=== PATIENT | female | born 1950 | race Caucasian/White ===

== ENCOUNTER 2018-06-16 06:23 | Inpatient (IN) | payer OTHER ==
[~2018-06-16] VITALS: Ht 165.1 cm; Wt 126.1 kg
[2018-06-16 06:24] VITALS: BP 115/60
[2018-06-16] MEDS ORDERED: ASPIR 8181 MG PO (07:20)
[2018-06-16] MEDS ORDERED: TYLENOL EXTRA500 MG PO (07:20)
[2018-06-16] MEDS ORDERED: ATORVASTATIN CA40 MG PO (07:21)
[2018-06-16] MEDS ORDERED: CALCIUM 500 +1 EAC5 PO (07:21)
[2018-06-16] MEDS ORDERED: LIORESAL 10 MG10 MG PO (07:21)
[2018-06-16] MEDS ORDERED: EUCERIN CREME57 GM TOP (07:22)
[2018-06-16] MEDS ORDERED: GABAPENTIN 100100 MG PO (07:22)
[2018-06-16] MEDS ORDERED: LANTUS SUBQ (07:23)
[2018-06-16] MEDS ORDERED: PROBIOTIC1 EAC1 PO (07:23)
[2018-06-16 07:24] LABS: ABSOLUTE NEUTROPHILS 5.6 thou/uL (1.4-8.2); BASOPHILS 1.2 % (0.0-2.0); EOSINOPHILS 2.4 % (0.0-3.0); HEMATOCRIT 31.8 % (37.0-47.0); LYMPHOCYTES 35.1 % (24.0-44.0); MCH 21.8 pg (26.0-34.0); MCHC 31.4 g/dL (28.0-37.0); MCV 69.5 fL (80.0-100.0); MONOCYTES 5.7 % (1.0-8.0); PLATELET COUNT 259 thou/uL (150-400); POLYS 55.6 % (36.0-66.0); RBC 4.57 mil/uL (4.20-5.00); RDW 16.8 % (10.5-14.5); WBC 10.1 thou/uL (4.0-11.0)
[2018-06-16] MEDS ORDERED: LISINOPRIL20 MG PO (07:27)
[2018-06-16] MEDS ORDERED: MELATONIN3 MG PO (07:27)
[2018-06-16] MEDS ORDERED: ANECREAM5 GM TOP (07:27)
[2018-06-16] MEDS ORDERED: MIRALAX17 GM PO (07:29)
[2018-06-16] MEDS ORDERED: METAMUCIL FIBE3.4 GM PO (07:29)
[2018-06-16] MEDS ORDERED: TOPROL XL100 MG PO (07:29)
[2018-06-16] MEDS ORDERED: METFORMIN HCL500 MG PO (07:29)
[2018-06-16] MEDS ORDERED: NOVOLOG100 UNIT/1 SUBQ (07:30)
[2018-06-16] MEDS ORDERED: NORVASC5 MG PO (07:30)
[2018-06-16] MEDS ORDERED: KLOR-CON 1010 MEQ PO (07:31)
[2018-06-16] MEDS ORDERED: NYAMYC15 GM TOP (07:31)
[2018-06-16] MEDS ORDERED: SEROQUEL 25 MG25 M1 PO (07:31)
[2018-06-16] MEDS ORDERED: TRAMADOL 50 MG50 MG PO (07:32)
[2018-06-16] MEDS ORDERED: ACID REDUCER75 MG PO (07:32)
[2018-06-16] MEDS ORDERED: GAS RELIEF80 MG PO (07:32)
[2018-06-16] MEDS ORDERED: GEODON 80 MG CA80 MG PO (07:33)
[2018-06-16 07:40] LABS: CALCIUM 9.7 mg/dL (8.5-10.1); CREATININE 2.5 mg/dL (0.6-1.0); POTASSIUM 4.2 mmol/L (3.5-5.1)
[2018-06-16 07:46] LABS: URINE BILIRUBIN NEGATIVE (Negative); URINE BLOOD NEGATIVE (Negative); URINE CLARITY CLEAR; URINE COLOR YELLOW; URINE GLUCOSE-RANDOM* NEGATIVE (Negative); URINE KETONES NEGATIVE (Negative); URINE LEUKOCYTES-REFLEX NEGATIVE (Negative); URINE NITRITE-REFLEX NEGATIVE (Negative); URINE PROTEIN (DIPSTICK) NEGATIVE (Negative); URINE SPECIFIC GRAVITY 1.025 (1.005-1.035); URINE UROBILINOGEN 0.2 E.U./dl (0.2-1.0)
[2018-06-16 08:26] LABS: ANISOCYTOSIS 1+; HYPOCHROMASIA 1+; MICROCYTES 2+
[2018-06-16 15:50] VITALS: BP 115/67
[2018-06-16 17:31] VITALS: BP 115/65
[2018-06-16 18:36] VITALS: BP 141/64
[2018-06-16 20:12] VITALS: BP 139/48
[2018-06-17 04:37] VITALS: BP 119/97
[2018-06-17 06:32] LABS: HEMATOCRIT 27.9 % (37.0-47.0); HEMOGLOBIN 8.7 gm/dL (12.0-15.0); MCH 21.5 pg (26.0-34.0); MCHC 31.1 g/dL (28.0-37.0); MCV 69.2 fL (80.0-100.0); RBC 4.04 mil/uL (4.20-5.00); RDW 17.3 % (10.5-14.5); WBC 9.1 thou/uL (4.0-11.0)
[2018-06-17 06:38] LABS: CALCIUM 8.6 mg/dL (8.5-10.1); POTASSIUM 4.1 mmol/L (3.5-5.1)
[2018-06-17 06:40] LABS: CREATININE 1.5 mg/dL (0.6-1.0)
[2018-06-17 08:00] VITALS: BP 122/60
== END 2018-06-17 13:34 | DRG 683 ==
LOC: ER 06:23 → 4W 09:56 → EROBS 09:56 → 4W 18:14 → ENTRNSPT 06-17 13:27 → EDTRNSPTSTS 06-17 13:32 → 4W 06-17 13:34 → CMPTRNSPT 06-17 13:37
PROVIDERS: Hospitalist; Student in an Organized Health Care Education/Training Program
DX: N17.9 Acute kidney failure, unspecified (principal); F20.0 Paranoid schizophrenia; K21.9 Gastro-esophageal reflux disease without esophagitis; N18.3 Chronic kidney disease, stage 3 (moderate); I12.9 Hypertensive chronic kidney disease with stage 1 through stage 4 chronic kidney disease, or unspecified chronic kidney disease; E11.22 Type 2 diabetes mellitus with diabetic chronic kidney disease; F17.210 Nicotine dependence, cigarettes, uncomplicated; Z79.4 Long term (current) use of insulin; Z79.82 Long term (current) use of aspirin; Z79.899 Other long term (current) drug therapy
CPT/HCPCS: 10045

== ENCOUNTER 2018-08-01 01:00 | Emergency (ER) | payer OTHER ==
[~2018-08-01] VITALS: Ht 167.6 cm; Wt 122.5 kg
[~2018-08-01 01:00] MED LIST: ACID REDUCER75 MG PO; ANECREAM5 GM TOP; ASPIR 8181 MG PO; ATORVASTATIN CA40 MG PO; CALCIUM 500 +1 EAC5 PO; EUCERIN CREME57 GM TOP; GABAPENTIN 100100 MG PO; GAS RELIEF80 MG PO; GEODON 80 MG CA80 MG PO; KLOR-CON 1010 MEQ PO; LANTUS SUBQ; LIORESAL 10 MG10 MG PO; LISINOPRIL20 MG PO; MELATONIN3 MG PO; METAMUCIL FIBE3.4 GM PO; METFORMIN HCL500 MG PO; MIRALAX17 GM PO; NORVASC5 MG PO; NOVOLOG100 UNIT/1 SUBQ; NYAMYC15 GM TOP; PROBIOTIC1 EAC1 PO; SEROQUEL 25 MG25 M1 PO; TOPROL XL100 MG PO; TRAMADOL 50 MG50 MG PO; TYLENOL EXTRA500 MG PO
[2018-08-01] MEDS ORDERED: NORVASC10 MG PO (01:23)
[2018-08-01] MEDS ORDERED: TRAMADOL 50 MG50 MG PO (01:24)
[2018-08-01] MEDS ORDERED: VICTOZA0.6 MG/0.1 SUBQ (01:26)
[2018-08-01 02:06] LABS: HEMATOCRIT 31.1 % (37.0-47.0); HEMOGLOBIN 9.6 gm/dL (12.0-15.0); MCH 21.1 pg (26.0-34.0); MCHC 30.7 g/dL (28.0-37.0); MCV 68.8 fL (80.0-100.0); RBC 4.52 mil/uL (4.20-5.00); RDW 17.4 % (10.5-14.5); WBC 10.1 thou/uL (4.0-11.0)
[2018-08-01 02:13] LABS: CALCIUM 9.7 mg/dL (8.5-10.1); CREATININE 1.3 mg/dL (0.6-1.0)
[2018-08-01 02:19] LABS: ALBUMIN 3.2 g/dL (3.4-5.0); TOTAL BILIRUBIN 0.2 mg/dL (<0.1-1.0); TOTAL PROTEIN 7.2 g/dL (6.4-8.2)
== END 2018-08-01 05:27 | disposition home or self-care (01) ==
LOC: ER 01:00
PROVIDERS: Emergency Medicine
DX: R51 Headache (principal); F17.210 Nicotine dependence, cigarettes, uncomplicated; I10 Essential (primary) hypertension; K21.9 Gastro-esophageal reflux disease without esophagitis; E11.9 Type 2 diabetes mellitus without complications; Z79.4 Long term (current) use of insulin

== ENCOUNTER 2020-04-24 11:39 | Inpatient (IN) | payer OTHER ==
[~2020-04-24] VITALS: Ht 170.2 cm; Wt 106.3 kg
[~2020-04-24 11:39] MED LIST changes: +NORVASC10 MG PO; +VICTOZA0.6 MG/0.1 SUBQ
[2020-04-24 11:40] VITALS: BP 110/54
[2020-04-24 12:40] LABS: HEMOGLOBIN 8.6 gm/dL (12.0-15.0); WBC 5.5 thou/uL (4.0-11.0)
[2020-04-24 12:42] LABS: HEMATOCRIT 26.9 % (37.0-47.0); MCHC 31.8 g/dL (28.0-37.0); MCV 66.2 fL (80.0-100.0); PLATELET COUNT 177 thou/uL (150-400); RBC 4.07 mil/uL (4.20-5.00); RDW 18.6 % (10.5-14.5)
[2020-04-24 12:44] LABS: ANION GAP 8 mmol/L (7-16); BUN 30 mg/dL (7-18); CALCIUM 8.4 mg/dL (8.5-10.1); CHLORIDE 103 mmol/L (98-107); CO2 24 mmol/L (21-32); CREATININE 1.4 mg/dL (0.6-1.0); GLUCOSE 103 mg/dL (74-106); SODIUM 135 mmol/L (136-145)
[2020-04-24 12:47] LABS: POTASSIUM 4.6 mmol/L (3.5-5.1)
[2020-04-24 12:53] LABS: DIRECT BILIRUBIN < 0.1 mg/dL (<0.1-0.2); TOTAL BILIRUBIN 0.3 mg/dL (0.2-1.0)
[2020-04-24 12:54] LABS: ALBUMIN 2.8 g/dL (3.4-5.0); SGOT 84 U/L (15-37); SGPT 25 U/L (30-65); TOTAL PROTEIN 6.6 g/dL (6.4-8.2)
[2020-04-24 12:58] LABS: ABSOLUTE NEUTROPHILS 4.3 thou/uL (1.4-8.2); ANISOCYTOSIS 1+; PLATELET ESTIMATE NORMAL
[2020-04-24 12:59] LABS: MICROCYTES 1+
[2020-04-24 13:34] LABS: URINE BILIRUBIN NEGATIVE (Negative); URINE BLOOD NEGATIVE (Negative); URINE CLARITY SL CLOUDY; URINE COLOR YELLOW; URINE GLUCOSE-RANDOM* NEGATIVE (Negative); URINE KETONES NEGATIVE (Negative); URINE LEUKOCYTES-REFLEX NEGATIVE (Negative); URINE NITRITE-REFLEX NEGATIVE (Negative); URINE PROTEIN (DIPSTICK) NEGATIVE (Negative); URINE UROBILINOGEN 0.2 E.U./dl (0.2-1.0)
[2020-04-24] MEDS ORDERED: INVEGA SUS156 MG/1 M IM (14:49)
[2020-04-24] MEDS ORDERED: SLOW FE142 MG PO (14:50)
[2020-04-24] MEDS ORDERED: FLONASE 0.05%50 MCG NARES (14:50)
[2020-04-24 14:51] VITALS: BP 134/76
--- NOTE | 2020-04-24 15:09 | NUR ---
COVID PRECAUTIONS MAINTAINED THROUGHOUT ER STAY
[2020-04-24 15:10] VITALS: BP 134/76
[2020-04-24 15:55] VITALS: BP 111/66
--- NOTE | 2020-04-24 18:34 | NUR ---
PT ADMITTED FROM ER FOR COPD AND POSITIVE COVID, PT IS A&OX3, BUT PT IS FORGETFUL, PT IS ON O2 3L/MIN/NC, PT'S FEVER HAS IMPROVED BY THIS TIME, PT HAS STARTED IV ABX AT ER , RN HAS CALLED CONSULTS , NEW ORDER RECEIVED, PT NEEDS SECOND COVID TEST AND STARTS ANTI-COVID IV MEDICATION ABOUT 2000PM. PT DENIES PAIN AND SOB AT THIS TIME, RN WILL REPORT TO NEXT SHIFT TO KEEP EYE ON PT.
--- NOTE | 2020-04-24 20:05 | NUR ---
RN CANNOT PUT ADMISSION SYSTEMS ASSESSMENT, BECAUSE [employer] ( COMPUTER )DOES NOT WORK, RN HAS REPORT TO CHARGE NURSE.
[2020-04-24 20:13] VITALS: BP 132/78
[2020-04-25] VITALS (7 sets, daily range): BP systolic 108–120; BP diastolic 60–71
[2020-04-25 04:06] LABS: HEMATOCRIT 28.4 % (37.0-47.0); HEMOGLOBIN 8.8 gm/dL (12.0-15.0); MCH 20.5 pg (26.0-34.0); MCV 66.2 fL (80.0-100.0); RBC 4.29 mil/uL (4.20-5.00); RDW 18.3 % (10.5-14.5); WBC 4.4 thou/uL (4.0-11.0)
[2020-04-25 04:16] LABS: CALCIUM 8.2 mg/dL (8.5-10.1); CREATININE 1.4 mg/dL (0.6-1.0)
--- NOTE | 2020-04-25 05:45 | NUR ---
Pt alert and oriented but drowsy. Sats 93-94 on 3LNC. VSS. SR ON MONITOR. NO SKIN BREAKDOWN NOTED. PT HAD 1 LG BM TONIGHT. PT INC CLEAR YELLOW URINE. NO C/O PAIN. PROGRESSING SLOWLY TOWARDS D/C GOALS.
--- NOTE | 2020-04-25 18:26 | NUR ---
PT RESTED IN BED ON 3L NC TOLERATING PO WELL. CONTINUE IV ABX AND STEROIDS. UPDATE FAMILY TODAY. WILL CONTINUE TO ASSESS.
--- NOTE | 2020-04-25 18:33 | NUR ---
CONTACT PT'S FAMILY TO GIVE END OF SHIFT UPDATE.
--- NOTE | 2020-04-25 21:56 | NUR ---
Pt alert and oriented x3. VSS 99.4 . NO C/O PAIN . NO S/S DISTRESS. SAt 94 % on 3lnc. Turning pt q 2 hrs. pt is forgetful at times. Bed alarm om. Call light in reach. will continue to monitor pt c;ose;y for erika.
--- NOTE | 2020-04-26 00:14 | NUR ---
PT SLEEPING QUIETLY VSS 98.9. REPOSITIONED. NO S/S DISTRESS.
[2020-04-26 04:10] VITALS: BP 132/70
[2020-04-26 06:40] VITALS: BP 122/76
--- NOTE | 2020-04-26 06:41 | NUR ---
NOTIFIED Juliette SILVA PTS HT RT DECREASED T 40-50S. NOW IN 50- 60S. PT IS AWAKE AND ALERT ASYMTOMATIC. VSS. PT STATED SHE WAS COUGING. WILL NOTIFY DAY SHIFT NS ALSO. WILL CONTINUE TO MONITOR FOR CHANGES ORDERED.
[2020-04-26 11:23] VITALS: BP 127/88
--- NOTE | 2020-04-26 13:33 | NUR ---
CARE ASSUMED AT 0700, PT ALERT AND ORIENTED X4, DENIES CHEST PAIN, NAUSEA AND VOMITING. PT IS ON 3L OF O2 VIA NC, NO SIGNS O DISTRESS NOTED. PT IS IN CHAIR WITH ALARM ON. ASSESSMENT AND VITALS COMPLETED PER SERVANDOER. CALL LIGHT AND TABLE IN REACH. BED AT LOWEST LEVEL WITH ALARM ON WILL CONTINUE TO MONITOR.
--- NOTE | 2020-04-26 15:46 | NUR ---
INITIAL ASSESSMENT: ENOC reviewed chart and spoke with nursing and attending physician. Pt was admitted from [facility]. Pt is currently in Enhanced Isolation due to COVID-19. Pt has tested positive. ENOC spoke with pt via phone. Introduced role of SW. Pt appears to be alert/orientated x 4. Pt reports she has lived at [facility] since December of 2017. Pt uses a w/c for mobility and is not normally on O2 at the facility. Pt currently on 3L. Pt states that she is keeping her family updated. Pt is requesting to speak with the SW at [facility] regarding a new w/c. ENOC faxed clinical info to [facility] for review and spoke with ENOC Zamudio at facility. Provided pt's room number for her to call. Per Lizz, pt will need a negative COVID test within 24 hours of discharge. ENOC notified attending physician. ENOC is following to assist as needed with discharge planning.
[2020-04-26 16:00] VITALS: BP 116/60
[2020-04-26 19:11] VITALS: BP 116/57
[2020-04-27 03:56] VITALS: BP 125/72
--- NOTE | 2020-04-27 05:39 | NUR ---
ASSUMED CARE AT 1900, ASSESSMENT COMPLETED. PT DENIES PAIN OR NAUSEA. SLIGHTLY SOB WITH ACTIVITY, SATTING UPPER 90'S ON 3L O2, LUNG SOUNDS WHEEZY ON EXPIRATION. ELEVATED BLOOD SUGAR, SPOKE WITH GLUING MACHINE OPERATOR ELECTRONIC, SHE DIDN'T WANT TO INCREASE THE SLIDING SCALE YET THE LONG-ACTING HAD ALREADY BEEN INCREASED FOR THE FIRST TIME. NO OTHER CONCERNS, WILL CONTINUE TO MONITOR.
[2020-04-27 05:51] LABS: HEMOGLOBIN 8.5 gm/dL (12.0-15.0); MCH 20.4 pg (26.0-34.0); MCHC 30.3 g/dL (28.0-37.0); MCV 67.2 fL (80.0-100.0); RBC 4.17 mil/uL (4.20-5.00); RDW 18.6 % (10.5-14.5); WBC 7.6 thou/uL (4.0-11.0)
[2020-04-27 07:11] LABS: ALBUMIN 2.7 g/dL (3.4-5.0); CALCIUM 8.3 mg/dL (8.5-10.1); CREATININE 1.5 mg/dL (0.6-1.0); POTASSIUM 3.9 mmol/L (3.5-5.1); TOTAL BILIRUBIN 0.1 mg/dL (0.2-1.0); TOTAL PROTEIN 6.8 g/dL (6.4-8.2)
[2020-04-27 08:06] VITALS: BP 131/55
[2020-04-27 11:23] VITALS: BP 118/65
--- NOTE | 2020-04-27 14:13 | NUR ---
ENOC reviewed chart and spoke with nursing and attending physician. Pt remains in Enhanced Isolation due to COVID-19. ENOC faxed updated clinical and therapy notes to [facility] for review. Requested SW at [facility] contact pt, per pt's request. ENOC placed call to pt's room. Line was busy. ENOC provided pt's nurse with number for [facility], for pt to call. Plan is for pt to return to [facility] when medically stable. ENOC is following to assist as needed with discharge planning.
[2020-04-27 16:37] VITALS: BP 130/63
[2020-04-27 19:40] VITALS: BP 125/49
[2020-04-28 03:08] VITALS: BP 126/69
--- NOTE | 2020-04-28 06:34 | NUR ---
ASSUMED CARE AT 1900, PT DENIES PAIN OR NAUSEA. REPORTS IMPROVED BREATHING WITH LESS SPUTUM PRODUCTION, BUT C/O PERSISTENT DRY COUGH OVERNIGHT. SATTING WELL ON 1L O2. FREQ INCONT DESPITE USE OF PUREWICK. HS BLOOD SUGAR OF 382, GAVE 20 UNITS OF LISPRO AND 30 OF LANTUS. CONTINUED TO BE IRREGULAR AND FIDE ON TELE, FREQ HR DOWN TO 48 OR LOW 50'S. NO OTHER CONCERNS, WILL CONTINUE TO MONITOR.
[2020-04-28 07:30] VITALS: BP 139/89
[2020-04-28 09:59] LABS: HEMATOCRIT 28.7 % (37.0-47.0); HEMOGLOBIN 8.9 gm/dL (12.0-15.0); MCH 20.6 pg (26.0-34.0); MCHC 31.1 g/dL (28.0-37.0); MCV 66.4 fL (80.0-100.0); RBC 4.32 mil/uL (4.20-5.00); RDW 18.9 % (10.5-14.5); WBC 7.7 thou/uL (4.0-11.0)
[2020-04-28 10:06] LABS: CALCIUM 8.4 mg/dL (8.5-10.1); CREATININE 1.1 mg/dL (0.6-1.0); POTASSIUM 4.1 mmol/L (3.5-5.1)
[2020-04-28 10:59] LABS: PLATELET COUNT 190 thou/uL (150-400)
[2020-04-28 11:00] LABS: ABSOLUTE NEUTROPHILS 5.5 thou/uL (1.4-8.2); POLYCHROMASIA 1+
[2020-04-28 11:29] VITALS: BP 135/65
--- NOTE | 2020-04-28 11:47 | HC ---
[facility] [place] [address] CONSULTATION Name: MARGIE KIMBALL Room #: 355- ADM IN .R.#: [id number] Admission: 04/24/20 Attend Phys: Dennis Garcia MD Discharge: Date of : 52 Report #: [id number] THIS REPORT FOR: cc: Nery Belcher,Mariposa Vuong MD ~ CC: Dennis Belcher DATE OF SERVICE: 04/27/2020 ENDOCRINE CONSULTATION NOTE CONSULTING PHYSICIAN: Dr. Garcia. REASON FOR CONSULTATION: Uncontrolled type 2 diabetes mellitus, severe hyperglycemia. HISTORY OF PRESENT ILLNESS: This is a 69-year-old female patient whose medical background is significant for multiple medical issues including type 2 diabetes mellitus, hypertension, hyperlipidemia as well as COPD. The patient resides at a shelter facility where she was tested for COVID-19 and was found to be positive. She presented with complaints of fever, progressive weakness and was admitted for further care and monitoring. The patient is communicative, but is unable to give detailed information about her medical history. She believes that she has had type 2 diabetes mellitus for many years and indicates that she is being treated with insulin. Having reviewed her shelter records, the patient is maintained on Lantus insulin 20 units b.i.d., Humalog insulin 9 units t.i.d. a.c., and metformin 1000 mg b.i.d. Her records did not include blood glucose logs but the patient said that her blood glucose values are usually where they need to be. Again, she was not able to provide numeric details on these blood glucose values. She does not believe that she has recurrent issues with hypoglycemia. She is not aware of issues pertaining to diabetic retinopathy, nephropathy, or heart disease. Since her admission to the hospital, the patient was treated with multiple therapeutics, which include IV Solu-Medrol and has developed severe hyperglycemia in excess of 300 mg/dL. Also, the patient is known to have hypertension and is maintained on lisinopril 20 mg daily and amlodipine 10 mg daily. The patient has hyperlipidemia and is maintained on atorvastatin 40 mg daily. REVIEW OF SYSTEMS: CONSTITUTIONAL: Fatigue, tiredness, weakness, fever, chills, but not body weight changes. [address] [address] CONSULTATION Name: MARGIE KIMBALL Room #: [address] [place] [address] IN .R.#: [id number] Admission: 04/24/20 Attend Phys: Dennis Garcia MD Discharge: Date of : 52 Report #: [id number] HEENT: Negative for sore throat, sinus pain, ear drainage. PULMONARY: Shortness of breath, intermittent cough without hemoptysis. CARDIAC: Occasional palpitations, dyspnea on exertion, but not syncope or presyncope. No chest pain. GASTROINTESTINAL: Occasional abdominal discomfort, nausea, but no vomiting or major changes in bowel movement frequency. NEUROLOGY: Negative for loss of consciousness, seizure activity, but noted for baseline diabetic neuropathy with peripheral numbness and tingling. DERMATOLOGY: Negative for rash, ulceration or discoloration. Otherwise, review of systems noncontributory other than those mentioned in HPI. PAST MEDICAL HISTORY: 1. Type 2 diabetes mellitus. 2. Hypertension. 3. Hyperlipidemia. 4. Diabetic neuropathy. 5. Gastroesophageal reflux disease. 6. Osteoarthritis. 7. Paranoid schizophrenia. 8. Chronic obstructive pulmonary disease. OUTPATIENT MEDICATIONS: Include Tylenol 500 mg q. 4 hours p.r.n., aspirin 81 mg daily, atorvastatin 40 mg at bedtime. Os-Nikolay 500 plus D daily, gabapentin 200 mg at bedtime, Lantus insulin 20 units b.i.d., lisinopril 20 mg daily, melatonin 3 mg at bedtime, metformin 1000 mg b.i.d., ferrous sulfate 1 tablet at bedtime, baclofen 10 mg t.i.d. p.r.n., NovoLog insulin 9 units t.i.d. a.c., ranitidine 75 mg p.o. b.i.d., amlodipine 10 mg daily, tramadol 50 mg q.6 hours p.r.n. ALLERGIES: No known drug allergies. FAMILY HISTORY: Noncontributory. SOCIAL HISTORY: The patient resides at a shelter. Denies use of tobacco, alcohol or illicit drugs. PHYSICAL EXAMINATION: GENERAL: -Ivorian female patient who is not in apparent pain or distress. VITAL SIGNS: Blood pressure is 118/65 mmHg, heart rate is 72 beats per minute, respirations 20 per minute, temperature 37.4 degrees Celsius. CONSTITUTIONAL: The patient is sitting upright in her chair, appears comfortable, not in pain or distress. HEENT: Anicteric sclerae. Intact extraocular motions. NECK: Supple, without thyromegaly. CHEST: Noted for limited air entry bilaterally with scattered rales, rhonchi, but no crackles. [facility] [address] [place] [address] CONSULTATION Name: MARGIE KIMBALL Room #: 355-P ADM IN [place].#: [id number] Admission: 04/24/20 Attend Phys: Dennis Garcia MD Discharge: Date of : 52 Report #: [id number] HEART: Regular rate and rhythm without murmurs or gallops. ABDOMEN: Soft, lax. No guarding. Active bowel sounds. EXTREMITIES: Lower extremity exam is noted for trace ankle edema bilaterally without skin breaks and with palpable pedal pulses. NEUROLOGIC: Awake, alert and oriented to time, place and person. The remainder of examination is nonfocal. PSYCH: Flat mood, flat affect, disordered thought process, but she is interactive. LABORATORY DATA: Blood glucose on arrival was 104 and since then has declined gradually and hit a high of 419 mg/dL last night. Most recently was at 407 mg/dL. Otherwise, sodium 138, potassium 3.9, chloride 104, CO2 of 23, anion gap 11, BUN 42, creatinine 1.5, baseline is 1.5, AST 33, total bilirubin 0.1, calcium 8.3, alkaline phosphatase 73, ALT 23, total protein 6.8, albumin 2.7, EGFR 35. Lactic acid 0.9. BNP 520, white blood count 7.6, hemoglobin 8.5, hematocrit 28, platelets 188. ASSESSMENT AND PLAN: 1. Type 2 diabetes mellitus. As noted above, the patient has a longstanding history of type 2 diabetes mellitus and is maintained on insulin basal bolus therapy. There is no direct indication as to her baseline level of control and I will order hemoglobin A1c to better assess that. The patient's current glycemic outlook is consistent with severe hyperglycemia in the context of acute illness and active intravenous steroid therapy. The patient has been initiated on Lantus insulin 30 units at bedtime. I will keep that up, but I will also back it up with Humalog 12 units t.i.d. a.c. I will also continue providing support with Humalog supplemental scale low intensity to be used as needed while we monitor her blood glucose values a.c. and at bedtime. As far as metformin goes, I would like to avoid using it for the time being. I believe that the patient is not a great candidate for that intermediate either based on her stage 3B chronic kidney disease as per her current kidney function indices. 2. Hypertension. The patient's level of blood pressure control is adequate, she is to continue the present regimen. 3. Diabetic neuropathy. The patient is maintained on low-dose gabapentin therapy at 200 mg at bedtime and maintains fair control of her symptoms, she is to continue with the same. 4. Hyperlipidemia. The patient is maintained on atorvastatin 40 mg at bedtime and tolerates it well, she is to continue with the same. 5. Pneumonia. The patient is COVID-19 positive and is currently on a regimen of IV methylprednisolone 62.5 mg q.i.d., remdesivir protocol, bronchodilator therapy, as well as ceftriaxone treatment and azithromycin treatment. The pulmonary team is following. I have reviewed the patient's clinical care notes, shelter care documentation, laboratory data, and other pertinent information for over 35 minutes in addition to my [place] [address] CONSULTATION Name: MARGIE KIMBALL Room #: 355-P [facility] IN M.R.#: [id number] Admission: 04/24/20 Attend Phys: Dennis Garcia MD Discharge: Date of : 52 Report #: [id number] I certainly appreciate Dr. Garcia's invitation to participate in the care of this patient. <ELECTRONICALLY SIGNED> By: Mariposa Lucas MD 04/28/20 1147 1349 [id number] Mariposa Lucas MD /nt
--- NOTE | 2020-04-28 13:28 | NUR ---
PT CARE ASSUMED AT 0700, PT ALERT AND ORIENTED X4, PT DENIES CHEST PAIN, NAUSEAN AND VOMITING. PT IS OFF OXYGEN, TOLERATING IT WELL. SOB WITH SOME EXERTION. PT IS AWARE TO TO NOTIFY NURSING STAFF, IF SOB. PT HAD A LARGE BM, PERICARE GIVEN. PT IS UP IN CHAIR, TABLW WITHIN REACH. CALL LIGHT IS ON. WILL CONTINUE TO MONITOR.
[2020-04-28 13:53] LABS: ALBUMIN 2.7 g/dL (3.4-5.0); DIRECT BILIRUBIN 0.1 mg/dL (<0.1-0.2); TOTAL BILIRUBIN 0.2 mg/dL (0.2-1.0); TOTAL PROTEIN 6.2 g/dL (6.4-8.2)
[2020-04-28 15:23] VITALS: BP 138/61
--- NOTE | 2020-04-28 16:55 | NUR ---
ENOC reviewed chart and spoke with nursing and attending physician. Pt remains in Enhanced Isolation due to COVID-19. ENOC received call from ENOC Zamudio at [facility]. Update provided. ENOC provided Lizz with pt's phone number in her room. ENOC spoke with pt via phone. Pt states she spoke with Lizz at [facility] and was able to talk to her younger sister, Meliton, via phone. Pt confirms plan is for pt to return to [facility] when medically stable. ENOC is following to assist as needed with discharge planning.
[2020-04-28 19:48] VITALS: BP 146/62
[2020-04-29 03:31] VITALS: BP 141/66
--- NOTE | 2020-04-29 06:23 | NUR ---
ASSUMED CARE AT 1900, ASSESSMENT COMPLETED. PT REPORTED MODERATE PAIN IN KNEE, GAVE TYLENOL. DENIED NAUSEA OR SOB, BUT DID C/O INTERMITTENT DRY COUGH. O2 SATS 98% OR HIGHER ON RA. UP TO BSC TWICE, PT MOVED SLOWLY AND WAS WEAK BUT DID DO ALL THE WORK OF THE TRANSFER BY HERSELF. NO OTHER CONCERNS, WILL CONTINUE TO MONITOR.
[2020-04-29 07:39] VITALS: BP 139/88
[2020-04-29 11:47] VITALS: BP 140/66
[2020-04-29] MEDS ORDERED: COMBIVENT RESPIM4 GM INH (12:31)
[2020-04-29] MEDS ORDERED: LANTUS SUBQ (12:35)
[2020-04-29] MEDS ORDERED: HUMALOG100 UNIT/1 SUBQ (12:36)
[2020-04-29] MEDS ORDERED: CEFDINIR300 MG PO (12:45)
--- NOTE | 2020-04-29 14:19 | NUR ---
DISCHARGE NOTE: ENOC reviewed chart and spoke with nursing and attending physician. Pt remains in Enhanced Isolation due to COVID-19. Pt is medically stable for discharge back to [facility] today. Pt will return to half-way care. ENOC faxed finalized discharge orders/summary to [facility] and notified staff of pt's return. ENOC arranged w/c van through [facility], as the facility is not able to arrange transportation. ENOC notified [facility] staff that pt is COVID-19 positive. W/c van transportation scheduled for [id number] today. Pt to be brought to the back entrance of the facility, where they have isolated COVID positive pts. This info given to [employer]. ENOC updated pt's nurse with transportation time and number to call report. ENOC placed call to pt's room. No answer. ENOC spoke with pt's dtr, Margaret, via phone to provide update and notify of discharge plan. Pt's dtr aware and agreeable. Chart copy requested. No additional SW needs identified at this time, but is available to assist should needs arise.
--- NOTE | 2020-04-29 15:49 | NUR ---
assumed patient care at 0700. a/o x4. anxious. vss. dc to snf at 1540.
== END 2020-04-29 15:40 | DRG 177 ==
LOC: ER 11:39 → 3W 13:49 → EROBS 13:49 → 3W 15:28
PROVIDERS: Emergency Medicine; ADMIT Hospitalist; ATTEND Hospitalist
DX: U07.1 COVID-19 (principal); J96.01 Acute respiratory failure with hypoxia; I50.31 Acute diastolic (congestive) heart failure; N17.0 Acute kidney failure with tubular necrosis; E43 Unspecified severe protein-calorie malnutrition; J12.89 Other viral pneumonia; J44.1 Chronic obstructive pulmonary disease with (acute) exacerbation; F20.0 Paranoid schizophrenia; I13.0 Hypertensive heart and chronic kidney disease with heart failure and stage 1 through stage 4 chronic kidney disease, or unspecified chronic kidney disease; E11.22 Type 2 diabetes mellitus with diabetic chronic kidney disease; K21.9 Gastro-esophageal reflux disease without esophagitis; E78.5 Hyperlipidemia, unspecified; E11.40 Type 2 diabetes mellitus with diabetic neuropathy, unspecified; M19.90 Unspecified osteoarthritis, unspecified site; F17.210 Nicotine dependence, cigarettes, uncomplicated; N18.9 Chronic kidney disease, unspecified; Z79.82 Long term (current) use of aspirin; Z79.899 Other long term (current) drug therapy
CPT/HCPCS: 10879

== ENCOUNTER 2021-08-04 09:53 | Inpatient (IN) | payer OTHER ==
[~2021-08-04] VITALS: Ht 167.6 cm; Wt 117.9 kg
--- NOTE | ~2021-08-04 | EMS ---
[address] [address] EMS Patient Care Report Name: MARGIE KIMBALL Room #: REG BISHOP Abel#: [id number] Admission: 08/04/21 Attend Phys: Discharge: Date of : 52 Report #: [id number] THIS REPORT FOR: //name// Report Transmitted: 08/04/2021 14:16 EMS Care Summary [place], [place]/[facility] Incident [id number] @ 08/04/2021 09:29 Incident Location [id number] [place] [address] Patient MARGIE KIMBALL Female, 71 Years 1950 Patient Address [id number] [place], [place] [id number] Patient History Diabetes,Gastro-Esophageal Reflux Disease (GERD),Schizophrenia, Patient Allergies No known allergies, Chief Complaint diarrhea Disposition Transported No Lights/[place] Dispatch Reason Unconscious/Fainting Transported To [facility] Narrative pt found in bed, open eyes to verbal. pt reported to have had 3 diarrhea BM this morning, per staff. they state pt is weaker than normal as well. she normally stands and pivots but is having difficulty this morning. pt denies pain or nausea. no blood reported in BM. pt answers questions approp but does not know year. she is able to follow command. pt blanket pulled to [facility], [facility] [address] [place] [address] EMS Patient Care Report Name: MARGIE KIMBALL Room #: REG BISHOP Abel#: [id number] Admission: 08/04/21 Attend Phys: Discharge: Date of : 52 Report #: [id number] transport w/o change. Initial Vitals @09:41P: 107,R: 22,BP: 150/87,Pain: 0/10,GCS: 14,Glucose: 173,SpO2: 95,Revised Trauma: 12, Assessments @09:36MENTAL:Place Oriented,Person Oriented,Event Oriented,Confused,SKIN:No Abnormalities,HEENT:Head/Face: No Abnormalities,LUNG SOUNDS:General: Diarrhea,ABDOMEN:General: Diarrhea,PELVIS//GI:EXTREMITIES:PULSE:NEURO: Impression Diarrhea Procedures @09:36ALS AssessmentResponse: Unchanged@09:41StretcherResponse: Unchanged Timeline 09:27,Call Received 09:27,Dispatch Notified 09:29,Dispatched 09:30,En Route 09:34,On Scene 09:36,At Patient 09:36,ALS Assessment,Response: Unchanged 09:41,BP: 150/87 M,PULSE: 107,RR: 22 R,SPO2: 95 Ox,ETCO2: ,B,PAIN: 0,GCS: 14, 09:41,Stretcher,Response: Unchanged 09:43,Depart Scene 09:50,At Destination 09:59,Call Closed Disclaimer v1.1 Copyright 2020 [employer] This EMS Care Summary contains data elements from the applicable legal record (which may be displayed differently). It is designed to provide pertinent information for the following purposes: continuity of care, clinical quality, and state data reporting. The complete legal record is available to ED staff and administrators of the receiving hospital in [facility]'s Patient Tracker. All data is provided "as is."
[~2021-08-04 09:53] MED LIST changes: +CEFDINIR300 MG PO; +COMBIVENT RESPIM4 GM INH; +FLONASE 0.05%50 MCG NARES; +HUMALOG100 UNIT/1 SUBQ; +INVEGA SUS156 MG/1 M IM; +SLOW FE142 MG PO
[2021-08-04 09:54] VITALS: BP 135/57
[2021-08-04] MEDS ORDERED: AZELASTINE205.5 MCG/ NARES (10:02)
[2021-08-04] MEDS ORDERED: ZYRTEC10 M5 PO (10:03)
[2021-08-04] MEDS ORDERED: FAMOTIDINE 20 M20 MG PO (10:03)
[2021-08-04] MEDS ORDERED: MUCUS ER600 M1 PO (10:04)
[2021-08-04] MEDS ORDERED: OXYBUTYNIN 5 MG5 M2 PO (10:04)
[2021-08-04] MEDS ORDERED: SEROQUEL 25 MG25 MG PO (10:05)
[2021-08-04] MEDS ORDERED: TRAMADOL 50 MG50 MG PO (10:05)
[2021-08-04] MEDS ORDERED: GEODON 80 MG CA80 MG PO (10:06)
[2021-08-04 11:06] LABS: ABSOLUTE NEUTROPHILS 11.7 thou/uL (1.4-8.2); BASOPHILS 0.5 % (0.0-2.0); EOSINOPHILS 0.9 % (0.0-3.0); HEMATOCRIT 29.4 % (37.0-47.0); LYMPHOCYTES 8.7 % (24.0-44.0); MCHC 30.5 g/dL (28.0-37.0); MCV 68.8 fL (80.0-100.0); MONOCYTES 2.6 % (1.0-8.0); PLATELET COUNT 270 thou/uL (150-400); POLYS 87.3 % (36.0-66.0); RBC 4.26 mil/uL (4.20-5.00); WBC 13.4 thou/uL (4.0-11.0)
[2021-08-04 11:14] LABS: CALCIUM 9.3 mg/dL (8.5-10.1); CREATININE 1.4 mg/dL (0.6-1.0)
[2021-08-04 11:15] LABS: POTASSIUM 5.7 mmol/L (3.5-5.1)
--- NOTE | 2021-08-04 13:20 | EKG ---
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1950 Requested By: Gardenia Gimenez Order Number: [id number] MD: Gary Connell Measurements Intervals [place] Rate: 99 P: 47 ME: 193 QRS: -61 QRSD: 107 T: 89 QT: 342 QTc: 439 Interpretive Statements Sinus tachycardia Ventricular premature complex LVH with secondary repolarization abnormality Anterior Q waves, possibly due to LVH Compared to ECG 02/05/2009 23:24:43 Ventricular premature complex(es) now present Sinus rhythm no longer present Electronically Signed On 08-04-2021 13:19:56 CDT by Gary Connell [email or web address] <ELECTRONICALLY SIGNED> By: Gary Connell MD, [facility] 08/04/21 1319 1002 1002 Gary Connell MD, FACC /EPI
[2021-08-04 13:56] LABS: ANISOCYTOSIS 1+; HYPOCHROMASIA 2+; MICROCYTES 2+; POIKILOCYTOSIS 1+
[2021-08-04 17:05] VITALS: BP 92/62
--- NOTE | 2021-08-04 17:06 | NUR ---
HANDOFF TOOL SENT AT THIS TIME
[2021-08-04 17:31] VITALS: BP 167/77
[2021-08-04 20:06] VITALS: BP 139/69
--- NOTE | 2021-08-05 05:27 | NUR ---
UPON SHIFT REPORT PT REPORTING FLANK PAIN 5/10. UPON SHIFT ASSESSMENT, PT AOX4. PT REPORTING 7/10 LOWER BACK PAIN. PT RECEIVING PRN PO NORCO Q4HR WITH PRN PO APAP Q4HR AVAILABLE. PT REPORTS SOB WHILE AT REST AND WITH EXERTION WHILE ON ROOM AIR. 2L O2 APPLIED VIA NC, PT REPORTING RELIEF AT 2.5L. PT TOLERATING PO INTAKE OF FLUIDS AND REGULAR DIET WITHOUT ISSUE. PT WITHOUT NAUSEA OR EMESIS. PT INCONTINENT OF BOWEL AND BLADDER. SKIN TO BLE NOTED TO BE DRY AND CRACKED. REDNESS, EXCORIATION AND BLISTERED SKIN NOTED TO SKIN FOLDS, PERINEUM AND BLE, ZGUARD APPLIED. PT RESTING IN BED THROUGHOUT SHIFT, FREQUENT REPOSITIONING ENCOURAGED, PT REFUSING REPOSITIONING ASSISTANCE DUE TO COMFORT PREFERENCES. SENSATION INTACT, CAPILLARY REFILL LESS THAN 3SEC, PERIPHERAL PULSES PALPABLE IN ALL EXTREMITIES. PT ENCOURAGED TO NOTIFY STAFF FOR ALL NEEDS, CALL LIGHT WITHIN REACH, BED ALARM ON, BED LOCKED IN LOWEST POSITION, FREQUENT MONITORING WILL CONTINUE.
[2021-08-05 05:37] LABS: HEMATOCRIT 26.8 % (37.0-47.0); HEMOGLOBIN 8.3 gm/dL (12.0-15.0); MCH 21.1 pg (26.0-34.0); MCHC 30.9 g/dL (28.0-37.0); MCV 68.2 fL (80.0-100.0); RBC 3.93 mil/uL (4.20-5.00); RDW 17.9 % (10.5-14.5); WBC 10.5 thou/uL (4.0-11.0)
[2021-08-05 05:41] LABS: CALCIUM 8.7 mg/dL (8.5-10.1); CREATININE 1.4 mg/dL (0.6-1.0)
[2021-08-05 05:42] LABS: POTASSIUM 4.3 mmol/L (3.5-5.1)
[2021-08-05 07:09] VITALS: BP 135/68
--- NOTE | 2021-08-05 13:58 | NUR ---
PT DID NOT RECEIVE OT EVAL. SHE LIVES IN [facility] H[facility] CARE AND RECIEVES FULL ASSIST FOR ALL OF HERE ADL AND IS ABLE TO MOBILIZE HER WHEELCHAIR WITH RUE AND B FEET AROUND THE FACILITY. PT HOPES TO BE D/C TOMORROW.
--- NOTE | 2021-08-05 18:25 | NUR ---
PT ASSESSED AT START OF SHIFT. VERY PLEASANT AND COOPERATIVE W/ CARES. OCCASIONAL C/O BACK PAIN. TURNED Q2HRS W/ ASSIST. THERAPIST WORKED SOME W/ PT THIS AM. EATING AND DRINKING WELL. RAW SKIN AREAS HEALING. COUGHING SOME -NO SPUTUM.
[2021-08-05 20:00] VITALS: BP 152/64
--- NOTE | 2021-08-06 04:20 | NUR ---
ASSUMED CARE OF PT [id number]. BEDSIDE REPORT REIVCEVED. ANT ASSESSMETN COMPLETE. PT INCONT OF BOWEL/BLADDER, COMPLETE BED CHANGE COMPLETE. NOMI CARE GIVEN. BARRIER CREAM APPLIED. REPOSITIONED FOR COMFORT. MEDS GIVEN ORDERED. HOURLY ROUNDING CONTINUNING. FLUIDS INFUSING ORDERED. ALL NEEDS MET. CALL LIGHT IN REACH.
[2021-08-06 08:21] VITALS: BP 153/71
--- NOTE | 2021-08-06 10:25 | NUR ---
ASSUMED PT CARE THIS AM. PT IS ALERT & ORIENTED X4. PT HAS IV SITE ON R CHEST RUNNING D5 NS @75ML/HR. PT IS ACCUCHECK ACHS. PT IS ON 2L NC O2. PT IS INCONTINENT AND GIVEN NOMI CARE. PT IS ON TELE MONITOR ON. PT TOLERATED DIET AND MEDICATION WELL. PT ON THE BED, BED ON THE LOWEST POSITION, SIDE RAILS UP, CALL LIGHT WITHIN REACH. WILL CONTINUE TO MONITOR PT. FOLLOW POC.
[2021-08-06 11:58] VITALS: BP 153/64
[2021-08-06 16:10] VITALS: BP 154/69
[2021-08-06 20:15] VITALS: BP 157/72
[2021-08-07 04:00] VITALS: BP 155/67
[2021-08-07 05:41] LABS: HEMATOCRIT 25.2 % (37.0-47.0); HEMOGLOBIN 7.9 gm/dL (12.0-15.0); MCH 21.3 pg (26.0-34.0); MCHC 31.4 g/dL (28.0-37.0); RBC 3.71 mil/uL (4.20-5.00); RDW 17.9 % (10.5-14.5); WBC 5.9 thou/uL (4.0-11.0)
[2021-08-07 05:58] LABS: CALCIUM 8.3 mg/dL (8.5-10.1); CREATININE 1.1 mg/dL (0.6-1.0)
--- NOTE | 2021-08-07 06:02 | NUR ---
ASSESSED AT START OF SHIFT. PT RESTING IN BED. REPOSITIONED FOR COMFORT. IV INTACT AND FLUIDS INFUSING. PAIN MEDICATION GIVEN. BSG CHECKED. PT INCONTINENT. WILL CONT WITH POC TILL EOS.
--- NOTE | 2021-08-07 07:27 | EKG ---
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1950 Requested By: Gardenia Gimenez Order Number: [id number] MD: Gary Connell Measurements Intervals [place] Rate: 94 P: -49 CA: 130 QRS: -52 QRSD: 97 T: 40 QT: 425 QTc: 532 Interpretive Statements Sinus or ectopic atrial tachycardia Multiple premature complexes, vent & supraven LAE, consider biatrial enlargement INFERIOR INFARCT, OLD Compared to ECG 08/04/2021 10:02:21 Sinus tachycardia no longer present Ventricular premature complex(es) no longer present Left ventricular hypertrophy no longer present Early repolarization no longer present Q waves no longer present Electronically Signed On 08-07-2021 7:27:00 CDT by Gary Connell [email or web address] <ELECTRONICALLY SIGNED> By: Gary Connell MD, FACC 08/07/21 0727 20 142 Gary Connell MD, FACC /EPI
[2021-08-07 08:06] VITALS: BP 149/66
[2021-08-07 09:16] LABS: ABSOLUTE RETIC COUNT 0.0333 10^6/uL; OBSERVED RETIC COUNT 0.87 % (0.6-2.6)
[2021-08-07 09:18] LABS: % SATURATION 14 % (20-39); IRON 27 ug/dL (50-170); TIBC 194 ug/dL (250-450)
--- NOTE | 2021-08-07 11:06 | NUR ---
A/O X 3 FORGETFUL. 2 L O2 VIA NASAL CANNULA. 2 ASSIST/ BEDBOUND. IV RIGHT BREAST WITH D5 1/2 NS @ 75. INCONT B/B. LAST BM 08/06. NO INSULIN GIVEN FOR BREAKFAST. STILL NEED OCCULT STOOL. NORCO GIVEN FOR ABD PAIN.
--- NOTE | 2021-08-07 14:24 | NUR ---
INITIAL ASSESSMENT/DISCHARGE NOTE: Consult received. ENOC reviewed chart and spoke with nursing and attending physician. Pt was admitted from [facility] due to diarrhea. Pt is medically stable for discharge back to [facility] today. Awaiting final discharge orders at this time. ENOC faxed clinical info to [facility] and spoke with Catrina, to notify of pt's discharge. Catrina confirms they are able to accept pt back today. Stretcher van transportation scheduled for [id number] per facility's arrangements. ENOC met with pt at bedside. Introduced role of ENOC. Pt is alert/orientated x 4. Pt is aware of discharge and is in agreement with plan. ENOC notified pt of transportation time. Pt requested SW contact her sister, Meliton, to provide update. ENOC left voice messagse for pt's sister to notify of discharge time. Awaiting final discharge orders at this time. Chart copy requested. Nursing provided with number to call report. ENOC is following to finalize discharge.
[2021-08-07 15:50] VITALS: BP 161/67
== END 2021-08-07 18:33 | DRG 391 ==
LOC: ER 09:53 → 4S 16:42 → EROBS 16:42 → 4S 17:37
PROVIDERS: Emergency Medicine; ADMIT Hospitalist; ATTEND Hospitalist
DX: K29.70 Gastritis, unspecified, without bleeding (principal); J18.9 Pneumonia, unspecified organism; N17.9 Acute kidney failure, unspecified; E87.5 Hyperkalemia; E86.0 Dehydration; E11.9 Type 2 diabetes mellitus without complications; F20.9 Schizophrenia, unspecified; I10 Essential (primary) hypertension; K21.9 Gastro-esophageal reflux disease without esophagitis; F17.210 Nicotine dependence, cigarettes, uncomplicated; Z20.822 Contact with and (suspected) exposure to COVID-19; R53.81 Other malaise; D50.9 Iron deficiency anemia, unspecified; Z86.16 Personal history of COVID-19; Z79.82 Long term (current) use of aspirin; Z79.899 Other long term (current) drug therapy; Z28.21 Immunization not carried out because of patient refusal
CPT/HCPCS: 10100